=== PATIENT | male | born 1990 | race American Indian/Alaskan Native ===

== ENCOUNTER 2019-02-05 03:41 | Emergency (ER) | payer SELFPAY ==
--- NOTE | 2019-02-05 04:18 | ED PDOC ---
HPI: Psych/Substance Abuse Time Seen by Provider: 02/05/19 03:54 Chief Complaint (Nursing): Alcohol Ingestion Chief Complaint (Provider): alcohol intoxication ED Caveat: Intoxicated History Per: Patient History/Exam Limitations: intoxication Onset/Duration Of Symptoms: Unknown Current Symptoms Are (Timing): Still Present Modifying Factor(s): Alcohol Severity: Moderate Additional Complaint(s): PAtient BIB [facility] for evaluation of public intoxication. On arrival to ED patient unable to provide history due to inebriated condition. Past Medical History Reviewed: Historical Data, Nursing Documentation, Vital Signs Vital Signs: Last Vital Signs Temp 98.7 F 02/05/19 03:49 Pulse 101 H 02/05/19 03:49 Resp 18 02/05/19 03:49 BP 140/88 02/05/19 03:49 Pulse Ox 98 02/05/19 03:49 - Family History Family History: States: Unknown Family Hx - Allergies Allergies/Adverse Reactions: Allergies Allergy/AdvReac Type Severity Reaction Status Date / Time No Known Allergies Allergy Verified 02/05/19 03:54 Review of Systems Review Of Systems: ROS cannot be obtained secondary to pt's inabilty to answer questions. Physical Exam - Reviewed Nursing Documentation Reviewed: Yes Vital Signs Reviewed: Yes - Physical Exam Appears: Positive for: Non-toxic Head Exam: Positive for: ATRAUMATIC, NORMOCEPHALIC Skin: Positive for: Normal Color, Warm Eye Exam: Positive for: Normal appearance, EOMI, PERRL ENT: Positive for: Normal ENT Inspection Neck: Positive for: Normal, Painless ROM, Supple Cardiovascular/Chest: Positive for: Regular Rate, Rhythm. Negative for: Murmur Respiratory: Positive for: Normal Breath Sounds. Negative for: Rales, Rhonchi, Wheezing Extremity: Positive for: Normal ROM. Negative for: Tenderness, Pedal Edema Neurological/Psych: Positive for: Other (obtunded but arousable). Negative for: Awake, Alert, Motor/Sensory Deficits - ECG O2 Sat by Pulse Oximetry: 98 Medical Decision Making Medical Decision Makin28 year old intoxicated male BAL and AC ordered Disposition - Clinical Impression Clinical Impression: Alcohol intoxication - Disposition Disposition: Routine/Home Disposition Time: 06:00 Condition: STABLE Instructions: Alcohol Use - When Is Drinking a Problem? Forms: [employer] (I[place]ic)
[2019-02-05 07:41] VITALS: BP 114/67; PULSE 95; RESP 18; TEMP 98.3; O2SAT 98
== END 2019-02-05 07:00 | disposition home or self-care (01) ==
LOC: H.ER 03:41
DX: F10.129 Alcohol abuse with intoxication, unspecified (principal); Y90.8 Blood alcohol level of 240 mg/100 ml or more
CPT/HCPCS: 82948; 99283; G0480